=== PATIENT | female | born 2000 | race Asian ===

== ENCOUNTER → 2019-08-22 | Emergency (ER) | payer MEDICAID, OTHER, SELFPAY ==
[~2019-08-22] VITALS: Ht 160 cm; Wt 40.8 kg
[~2019-08-22] MED LIST: ALBUTEROL SULF 2.5 MG/0.5ML(0.5%) NEB SOLN NEB ONE; AZITHROMYCIN 500MG/ 250ML 250 ML IV ONE; DEXTROSE (50%) 50ML SYRG IV ONE; DOPamine 1600MCG/ML D5W 250 ML IV SCH; DOPamine 3200MCG/ML 250 ML IV SCH; EPINEPHrine HCL 1 MG/10 ML SYRG IV ONE; EPINEPHrine HCL 1 MG/10 ML SYRG ONE; EPINEPHrine HCL 250 ML IV SCH; EPINEPHrine HCL INJECTION 4 MG in D5W 5% 250 ML IV ONE; EPINEPHrine HCL INJECTION 4 MG in SODIUM CHL 0.9% 250 ML IV ONE; EPINEPHrine HCL INJECTION 4 MG in SODIUM CHL 0.9% 250 ML IV SCH; EPINEPHrine HCL INJECTION 8 MG in D5W 5% 250 ML IV SCH; MIDAZOLAM DRIP 50 mg/50mL 50 ML IV ONE; MIDAZOLAM DRIP 50 mg/50mL 50 ML IV SCH; NOREPINEPHRINE 8 MG/250ML KIT 250 ML IV ONE; NOREPINEPHRINE BITARTRATE 16 MG in SODIUM CHL 0.9% 250 ML IV SCH; PANTOPRAZOLE 40 MG/10 ML VIAL INJ IV SCH; PHENYLEPHRINE INJ 40 MG in SODIUM CHL 0.9% 250 ML IV SCH; PHENYLEPHRINE IV 250 ML IV ONE; PHENYLEPHRINE IV 250 ML IV SCH; PIPERACILLIN-TAZOB 2.25GM 50 ML IV SCH; SODIUM BICARBONATE 50ML VIAL 150 ML in D5W 5% 1,000 ML IV ONE; SODIUM BICARBONATE 8.4 % INJ 50ML VIAL IV ONE; SODIUM BICARBONATE 8.4% INJ 50ML SYRINGE IV ONE; SODIUM BICARBONATE 8.4% INJ 50ML SYRINGE ONE; SODIUM CHLORIDE 0.9% 1,000 ML IV ONE; VANCOMYCIN 750mg/250ml 250 ML IV SCH; VANCOMYCIN PER PHARMACY 0 MG IV SCH; VASOPRESSIN 50 UNITS in D5W 5% 247.5 ML IV SCH; cefTRIAXone 1GM/50ML D5W 50 ML IV ONE
[2019-08-22 11:36] LABS: Hematocrit 12.6 % (36.0-46.0); Red Blood Cells 1.12 10^6/uL (4.0-5.20); Red Cell Distribution Width 15.8 % (11.8-14.3)
[2019-08-22 11:38] LABS: Mean Corpuscular Hemoglobin 30.1 pg (28.0-32.0); Mean Corpuscular Hgb Conc. 26.7 g/dL (32.0-36.0); Mean Corpuscular Volume 112.9 fL (80.0-100.0)
[2019-08-22 11:46] LABS: Hemoglobin 3.4 g/dL (12.2-16.2); Platelet Count (auto) 6 10^3/uL (140-450); White Blood Cell 36.3 10^3/uL (4.4-10.8)
[2019-08-22 11:47] LABS: Band Neutrophils % (manual) 0; Basophils % (manual) 0 (0.0-2.0); Reactive Lymphocytes 0
[2019-08-22 12:04] LABS: BUN/Creatinine Ratio 18.9; Bilirubin, Total 0.7 mg/dL (0.2-1.0)
[2019-08-22 12:21] LABS: Alcohol, Urine < 3.0 mg/dL (0-5); Amphetamine Screen, Urine NEGATIVE (NEGATIVE); Barbiturate Scree,Urine NEGATIVE (NEGATIVE); Benzodiazephine Screen, Urine NEGATIVE (NEGATIVE); Cannabinoid Screen, Urine NEGATIVE (NEGATIVE); Cocaine Screen, Urine NEGATIVE (NEGATIVE); Opiate Scree,Urine NEGATIVE (NEGATIVE); Phencyclidine Screen, Urine NEGATIVE (NEGATIVE); Urine Bacteria FEW /hpf (None Seen); Urine Blood 1+ /uL (Negative); Urine Hyaline Cast MANY /lpf (0 - 2); Urine Mucus FEW (None Seen); Urine Specific Gravity 1.013 (1.001-1.035); Urine WBC 5 /hpf (0 - 5)
[2019-08-22 12:37] LABS: Lactic Acid w/Reflex 28.7 mmol/L (0.4-2.0)
[2019-08-22 12:41] LABS: Albumin 0.7 g/dL (3.4-5.0); Calcium 5.7 mg/dL (8.5-10.1); Potassium 5.9 mmol/L (3.5-5.1)
[2019-08-22 12:48] LABS: Blast Cells 78; Eosinophils % (manual) 5 (0-7); Lymphocytes % (manual) 12 (10.0-50.0); Metamyelocytes % 1; Monocytes % (manual) 1 (0-12); Myelocytes % 1; Promyelocytes % 2
[2019-08-22 13:20] VITALS: BP 45/18
[2019-08-22 14:06] LABS: Salicylate 1.7 mg/dL (2.8-20.0)
[2019-08-22 14:39] VITALS: BP 45/18
--- NOTE | 2019-08-22 15:30 | NUR ---
Respiratory note: VT INCREASED TO [address] ZHANG'S VERBAL ORDER. RN POOJA MADE AWARE OF CHANGE.
[2019-08-22 15:51] VITALS: BP 47/19
[2019-08-22 16:40] VITALS: BP_DIAS 14
[2019-08-22 16:45] VITALS: BP_SYST 37
== END | disposition expired ==
LOC: ER 08:54 → EDBD 08:54 → TELE 08:55 → UNDOADMIN 08:55
DX: I46.9 Cardiac arrest, cause unspecified (principal); J96.90 Respiratory failure, unspecified, unspecified whether with hypoxia or hypercapnia
CPT/HCPCS: 31500; 32556; 36415; 36430; 36556; 36600; 71045; 80053; 80307; 80329; 81001; 82728; 82805; 83605; 83615; 84484; 84702; 85007; 85027; 85060; 86850; 86900; 86901; 86920; 87040; 87070; 87077; 87086; 87186; 87804; 87880; 92950; 94640; 96365; 96366; 96368; 96375; 99291; J0171; J0696; J1265; J2250; J2370; J3370; J7050; J7060; J7070; P9016; P9017; P9035; U0003; 93005; 94002